=== PATIENT | male | born 1995 | race Caucasian/White ===

== ENCOUNTER 2019-10-30 00:17 | Emergency (ER) | payer SELFPAY ==
[~2019-10-30] VITALS: Ht 182.9 cm; Wt 63.5 kg
--- NOTE | 2019-10-30 00:20 | NUR ---
C/O SYNCOPE S/P SHOWER 1 1/2HRS AGO, L SIDED CHEST PAIN WITH L ARM NUMBNESS X30 MIN TP; PT TO BED 11, -SOB, NAD NOTED, VSS PENDING ER PROVIDER ENDY
[2019-10-30] MEDS ORDERED: NAPROXEN 250 MG TABLET ONE (00:54)
[2019-10-30] MEDS ORDERED: NAPROXEN 250 MG TABLET PO ONE (01:00)
--- NOTE | 2019-10-30 01:05 | NUR ---
XRAY AT BEDSIDE
--- NOTE | 2019-10-30 01:30 | NUR ---
Patient discharged to home in stable condition. Written and verbal after care instructions given. Patient verbalizes understanding of instruction.
[2019-10-30 02:10] VITALS: BP 121/60
== END 2019-10-30 02:10 | disposition home or self-care (01) ==
LOC: ER 00:17
DX: R07.89 Other chest pain (principal); R00.1 Bradycardia, unspecified; I47.1 Supraventricular tachycardia; E11.9 Type 2 diabetes mellitus without complications; Z88.0 Allergy status to penicillin; Z88.1 Allergy status to other antibiotic agents
CPT/HCPCS: 71045-TC